=== PATIENT | male | born 1940 | race Caucasian/White ===

== ENCOUNTER 2021-10-17 07:31 | Outpatient (RCR) | payer MEDICARE, BC, SELFPAY ==
[2021-10-17] MEDS: FAMOTIDINE 20 MG TABLET PO (08:14)
[2021-10-17] MEDS: diphenhydrAMINE HCl CAP 25 MG CAPSULE PO (08:14)
[2021-10-17] MEDS: ACETAMINOPHEN 325 MG TABLET 650 MG PO (08:14)
[2021-10-17 08:15] VITALS: BP 111/72; PULSE 86; RESP 18; TEMP 36.2; O2SAT 100
[2021-10-17 09:35] VITALS: BP 103/69; PULSE 80; O2SAT 96
== END 2021-10-17 17:00 ==
LOC: AMCINF 07:31
PROVIDERS: PCP Family Medicine Sports Medicine; Visit Provider Internal Medicine Hematology & Oncology
DX: U07.1 COVID-19 (principal); I10 Essential (primary) hypertension; I25.10 Atherosclerotic heart disease of native coronary artery without angina pectoris; J44.9 Chronic obstructive pulmonary disease, unspecified
CPT/HCPCS: A9270; M0247; Q0247

== ENCOUNTER 2022-02-06 11:46 | Emergency (ER) | payer MEDICARE, SELFPAY ==
--- NOTE | 2022-02-06 11:50 | PC.NURSE ---
Intubated by ERP with 7.5 ETT. Placement verified by auscultation and color change.
--- NOTE | 2022-02-06 11:54 | PC.NURSE ---
Resuscitation attempt stopped. Time of 1154.
--- NOTE | 2022-02-06 11:56 | PC.NURSE ---
Family at bedside.
--- NOTE | 2022-02-06 11:57 | ED.GENADULT ---
HPI - General Adult General Chief complaint: Cardiac Arrest/CPR Stated complaint: resp. arrest possibly cardiac arrest Time Seen by Provider: 02/06/22 11:56 Source: EMS and RN notes reviewed Mode of arrival: EMS Limitations: clinical condition History of Present Illness HPI narrative: 82-year-old male presenting the emergency department and full arrest. EMS was initially called to the house for a cardiac arrest but when they arrived on scene patient was alert oriented and speaking in full sentences. Family states that the patient was irritable last night but denied any other significant symptoms. Patient did have a systolic blood pressure 80 and was started on fluids during transport. Patient's blood pressure did improve to a systolic of 106. During transport EMS states that the patient became unresponsive and was found to be pulseless. Patient was bagged and CPR was started. Patient was treated with 1 round of epinephrine in route. Upon arrival to the ED patient was placed on the Tahir device and patient was intubated. An additional 3 rounds of epinephrine were given. Patient was pulseless the entire duration in the ED. Patient had no cardiac activity on bedside ultrasound. Patient was pronounced at 11:54. EMS reports the patient did have a significant cardiac history and had recently been [facility]. Family states patient had a milrinone infusion running. Related Data Home Medications Medication Instructions Recorded Confirmed Klor-Con M20 60 meq BYMOUTH BID 10/17/21 10/17/21 albuterol sulfate 2 puff INHALATION QID 10/17/21 10/17/21 allopurinol 100 mg PO DAILY 10/17/21 10/17/21 ascorbic acid (vitamin C) 1 mg PO DAILY 10/17/21 10/17/21 aspirin [Aspirin Low Dose] 81 mg PO DAILY 10/17/21 10/17/21 cholecalciferol (vitamin D3) 25 mcg PO DAILY 10/17/21 10/17/21 [Vitamin D3] insulin glargine [Lantus Solostar 15 unit SUBCUT QAM 10/17/21 10/17/21 U-100 Insulin] insulin lispro [Humalog Pen] 1 sliding scale dose SUBCUT 10/17/21 10/17/21 USEASDIRECTD lancets [Softclix Lancets] 10/17/21 10/17/21 levothyroxine [Euthyrox] 75 mcg PO DAILY 10/17/21 10/17/21 linagliptin [Tradjenta] 5 mg PO QAM 10/17/21 10/17/21 lisinopril 2.5 mg PO DAILY 10/17/21 10/17/21 metolazone 5 mg PO DAILY 10/17/21 10/17/21 metoprolol succinate 25 mg PO DAILY 10/17/21 10/17/21 pen needle, diabetic [ReliOn Pen 10/17/21 10/17/21 [place]] prednisolone acetate [Pred Forte] 1 drp EACH EYE Q12H 10/17/21 10/17/21 sacubitril-valsartan 1 tablet PO BID 10/17/21 10/17/21 tamsulosin 0.8 mg PO DAILY 10/17/21 10/17/21 torsemide 20 mg PO QAM 10/17/21 10/17/21 trazodone 50 mg PO HS 10/17/21 10/17/21 warfarin [Coumadin] 3 mg PO DAILY 10/17/21 10/17/21 Allergies Allergy/AdvReac Type Severity Reaction Status Date / Time glimepiride Allergy Unknown Rash Verified 10/17/21 08:13 insulin detemir Allergy Unknown Itching Verified 10/17/21 08:13 linagliptin Allergy Unknown Other Verified 10/17/21 08:13 metronidazole Allergy Unknown Other Verified 10/17/21 08:13 Review of Systems Review of Systems: ROS unobtainable: Yes unobtainable due to medical condition Exam Narrative: APPEARANCE: Ill-appearing and in full arrest HEAD: normocephalic, atraumatic. EYES: Pupils fixed and nonreactive NOSE: Normal no drainage THROAT: Pharynx clear, no exudate. NECK: Supple. No adenopathy, no masses. RESPIRATORY: Patient intubated upon arrival. CARDIOVASCULAR: Patient was asystole with no cardiac movement on bedside ultrasound ABDOMINAL: Nondistended MUSCULOSKELETAL: No spontaneous movement NEURO: Unresponsive SKIN: Cyanotic Course Consultations Consultation #1: updated the nurse for the primary care physician, Dr. Glasgow. Discharge Plan Discharge Clinical Impression: Cardiac arrest Patient Disposition: Condition: Prescriptions: No Action torsemide 20 mg Tablet 20 mg PO QAM RF: 0 trazodone 50 mg Tablet 50 mg PO HS RF: 0 m
--- NOTE | 2022-02-06 14:36 | PC.NURSE ---
Body released to [facility] home.
== END 2022-02-06 14:37 | disposition expired ==
PROVIDERS: Emergency Provider Emergency Medicine
DX: I46.9 Cardiac arrest, cause unspecified (principal); Z79.4 Long term (current) use of insulin; Z79.01 Long term (current) use of anticoagulants
CPT/HCPCS: 31500; 92950; 99285; J0171